=== PATIENT | male | born 1975 | race Two or more races ===

== ENCOUNTER 2020-12-13 20:00 | Emergency (ER) | payer SELFPAY ==
[~2020-12-13] VITALS: Ht 165.1 cm; Wt 61.2 kg
[2020-12-13] MEDS ORDERED: LORAZEPAM 1 MG TABLET ONE (20:47)
--- NOTE | 2020-12-13 20:51 | NUR ---
[id number] FROM [facility] TO ER BED 15. AAOX3. NOT IN RESP DISTRESS. AMBULATORY. CAME IN FOR FEELING ANXIOUS AFTER USING METH. PT ADMITTED TO USE METH EARLIER. WAS AT THE BEDSIDE FOR EVAL. ORDERS RECEIVED, NOTED AND CARRIED OUT
[2020-12-13] MEDS ORDERED: LORAZEPAM 1 MG TABLET PO ONE (21:00)
[2020-12-14 03:00] VITALS: BP 132/78
--- NOTE | 2020-12-14 03:08 | NUR ---
PTS AMBULATION TESTED AND PT VERBALIZED THAT HE IS FEELING BETTER AND READY TO GO.
--- NOTE | 2020-12-14 03:09 | NUR ---
MD CLEARED PT AND HE LEFT WITHOUT WAITING FOR ACI. PT ALSO LEFT WITHOUT SIGNING HOMELES DISCHARGE.
--- NOTE | 2020-12-14 03:11 | NUR ---
Patient given verbal discharge instructions. Patient verbalizes understanding of instructions. Patient is ambulatory with steady gait. Refuses offer of skilled nursing placement. Patient given list of available shelters in surrounding area.
== END 2020-12-14 03:18 | disposition home or self-care (01) ==
LOC: ER 20:05
DX: F15.10 Other stimulant abuse, uncomplicated (principal); R00.0 Tachycardia, unspecified; F41.9 Anxiety disorder, unspecified; Z59.00 Homelessness unspecified